=== PATIENT | female | born 1955 | race Caucasian/White ===

== ENCOUNTER 2021-06-12 11:41 | Emergency (ER) | payer MEDICARE ==
[~2021-06-12] VITALS: Ht 152.4 cm; Wt 59.0 kg
[2021-06-12 11:50] VITALS: BP 91/67
[2021-06-12 12:28] VITALS: BP 110/63
[2021-06-12 12:30] VITALS: BP 134/53
[2021-06-12 13:01] VITALS: BP 122/54
[2021-06-12] MEDS ORDERED: MEDDOSEPAK PO (13:27)
[2021-06-12] MEDS ORDERED: KEFLEX500 MG PO (13:27)
[2021-06-12] MEDS ORDERED: BENADRYL25 M1 PO (13:27)
[2021-06-12 13:30] VITALS: BP 131/54
== END 2021-06-12 14:31 | disposition home or self-care (01) ==
LOC: ED 11:41
DX: T63.461A Toxic effect of venom of wasps, accidental (unintentional), initial encounter (principal); L53.0 Toxic erythema